=== PATIENT | male | born 1955 | race Caucasian/White ===

== ENCOUNTER 2017-02-10 20:12 | Emergency (ER) | payer OTHER ==
[~2017-02-10] VITALS: Ht 182.9 cm; Wt 76.2 kg
[2017-02-10 20:18] VITALS: BP 158/76; PULSE 102; RESP 20; TEMP 97.2
[2017-02-10 20:24] VITALS: O2SAT 97
[2017-02-10] MEDS ORDERED: SODIUM CHLOR 0.9% 1000 ML INJ 1,000 ML IV SCH (20:37)
--- NOTE | 2017-02-10 20:37 | PD ---
HPI Chief Complaint: GI Complaint Time Seen by Provider: 20:27 Travel History International Travel<30 days: No Contact w/Intl Traveler<30days: No Traveled to known affect area: No History of Present Illness HPI The patient is a 62-year-old male that complains of vomiting since about noon today. He had slight diarrhea at 10:30 this morning. The patient has a history of incapacitating vertigo and has been admitted to the hospital for this. He states he does have vertigo now, particularly when he stands. He denies any fever. He does feel dehydrated. He denies hematemesis or melanotic or bloody stools. PFSH Past Medical History Cardiovascular Problems: No Genitourinary: No Musculoskeletal: No Neurologic: No Respiratory: No Social History Alcohol Use: No Tobacco Use: No Substance Use: No Allergies-Medications (Allergen,Severity, Reaction): Coded Allergies: phenobarbital (Verified Allergy, Severe, 02/10/17) Reported Meds & Prescriptions Reported Meds & Active Scripts Active Reported Hydrochlorothiazide 12.5 Mg Cap 12.5 Mg PO DAILY Enalapril (Enalapril Maleate) 2.5 Mg Tab 2.5 Mg PO DAILY Review of Systems Except as stated in HPI: all other systems reviewed are Neg Physical Exam Narrative GENERAL: The patient is alert, oriented 3 in moderate apparent distress with his nausea. He holds his head completely still, apparently because of the vertigo. His vital signs show blood pressure 158/76 with heart rate of 102. He appears mildly dehydrated. SKIN: Focused skin assessment warm/dry. HEAD: Atraumatic. Normocephalic. EYES: Pupils equal and round. No scleral icterus. No injection or drainage. With head movement the patient does exhibit some brief lateral nystagmus. This makes him very uncomfortable. ENT: No nasal bleeding or discharge. Mucous membranes pink and moist. NECK: Trachea midline. No JVD. CARDIOVASCULAR: Regular rate and rhythm. No murmur appreciated. RESPIRATORY: No accessory muscle use. Clear to auscultation. Breath sounds equal bilaterally. GASTROINTESTINAL: Abdomen soft, non-tender, nondistended. Hepatic and splenic margins not palpable. No guarding or rebound is present. MUSCULOSKELETAL: No obvious deformities. No clubbing. No cyanosis. No edema. NEUROLOGICAL: Awake and alert. No obvious cranial nerve deficits. Motor grossly within normal limits. Normal speech. PSYCHIATRIC: Appropriate mood and affect; insight and judgment normal. Data Data Last Documented VS Vital Signs Date Time Temp Pulse Resp B/P (MAP) Pulse Ox O2 Delivery O2 Flow Rate FiO2 02/10/17 21:31 89 16 166/65 (98) 98 Nasal Cannula 2.00 02/10/17 20:18 97.2 Orders Orders Complete Blood Count With Diff (02/10/17 20:37) Comprehensive Metabolic Panel (02/10/17 20:37) Lipase (02/10/17 20:37) Urinalysis - C+S If Indicated (02/10/17 20:37) Iv Access Insert/Monitor (02/10/17 20:37) Ecg Monitoring (02/10/17 20:37) Oximetry (02/10/17 20:37) Sodium Chlor 0.9% 1000 Ml Inj (Ns 1000 M (02/10/17 20:37) Sodium Chloride 0.9% Flush (Ns Flush) (02/10/17 20:45) Prochlorperazine Inj (Compazine Inj) (02/10/17 20:45) Sodium Chlor 0.9% 1000 Ml Inj (Ns 1000 M (02/10/17 20:45) Labs Laboratory Tests Test 02/10/17 20:40 White Blood Count 13.5 TH/MM3 Red Blood Count 5.74 MIL/MM3 Hemoglobin 16.0 GM/DL Hematocrit 48.5 % Mean Corpuscular Volume 84.5 FL Mean Corpuscular Hemoglobin 28.0 PG Mean Corpuscular Hemoglobin Concent 33.1 % Red Cell Distribution Width 12.4 % Platelet Count 178 TH/MM3 Mean Platelet Volume 9.7 FL Neutrophils (%) (Auto) 83.5 % Lymphocytes (%) (Auto) 11.3 % Monocytes (%) (Auto) 2.4 % Eosinophils (%) (Auto) 0.2 % Basophils (%) (Auto) 2.6 % Neutrophils # (Auto) 11.3 TH/MM3 Lymphocytes # (Auto) 1.5 TH/MM3 Monocytes # (Auto) 0.3 TH/MM3 Eosinophils # (Auto) 0.0 TH/MM3 Basophils # (Auto) 0.4 TH/MM3 CBC Comment DIFF FINAL Differential Comment Blood Urea Nitrogen 14 MG/DL Creatinine 1.30 MG/DL Random Glucose 157 MG/DL Total Protein 7.9 GM/DL Albumin 3.8 GM/DL Calcium Level 9.0 MG/DL Alkaline Phosphatase 67 U/L Aspartate Amino Transf (AST/SGOT) 36 U/L Alanine Aminotransferase (ALT/SGPT) 56 U/L Total Bilirubin 0.9 MG/DL Sodium Level 133 MEQ/L Potassium Level 3.5 MEQ/L Chloride Level 98 MEQ/L Carbon Dioxide Level 22.8 MEQ/L Anion Gap 12 MEQ/L Estimat Glomerular Filtration Rate 56 ML/MIN Lipase 156 U/L [facility] Medical Decision Making Medical Screen Exam Complete: Yes Emergency Medical Condition: Yes Medical Record Reviewed: Yes Interpretation(s) The GFR is 56 and the glucose is 157 and the sodium is 133 but the rest of the complete metabolic profile is normal. Lipase is normal. The CBC shows a white count of 13,500 with 83.5% neutrophils but is otherwise unremarkable. Differential Diagnosis Vertigo, viral upper respiratory infection, viral labyrinthitis, viral gastroenteritis Narrative Course The patient appears to have vertigo. He may also have a viral gastroenteritis. He is given Compazine 10 mg every 4-6 hours as needed for nausea. He does have a history of recurrent vertigo and has been worked up for this. It is now 10:40 PM the patient feels much better and is not nauseated. His vertigo has subsided. Diagnosis Primary Impression: Vertigo Additional Instructions: Follow-up with her primary care physician next week. Do not drink alcohol or drive on the Compazine. Med/Other Pt SpecificInfo: Prescription(s) given Scripts Prochlorperazine Maleate (Prochlorperazine Maleate) 10 Mg Tab 10 MG PO Q4H Y for NAUSEA OR VOMITING, #30 TAB 0 Refills Prov: Dennis Evangelista MD 02/10/17 Disposition: DISCHARGE HOME Condition: Stable Dennis Evangelista MD Feb 10, 2017 20:37
[2017-02-10 20:40] VITALS: O2SAT 97
[2017-02-10] MEDS ORDERED: SODIUM CHLORIDE 0.9% FLUSH 10 ML FLUSH IV FLUSH PRN (20:45)
[2017-02-10] MEDS ORDERED: PROCHLORPERAZINE INJ 10 MG/2 ML VIAL IV PUSH ONE (20:45)
[2017-02-10] MEDS: SODIUM CHLOR 0.9% 1000 ML INJ 1,000 ML IV SCH ×2 (20:45→21:15)
[2017-02-10 20:48] LABS: AUTOMATED NEUTROPHIL # 11.3 TH/MM3 (1.8-7.7); BASOPHIL # 0.4 TH/MM3 (0-0.2); BASOPHIL % 2.6 % (0.0-2.0); EOSINOPHIL % 0.2 % (0.0-4.0); HEMATOCRIT 48.5 % (39.0-51.0); LYMPH % 11.3 % (9.0-44.0); LYMPHOCYTE # 1.5 TH/MM3 (1.0-4.8); MEAN CELL VOLUME 84.5 FL (80.0-100.0); MEAN CORPUSCULAR HGB CONC 33.1 % (32.0-36.0); MEAN PLATELET VOLUME 9.7 FL (7.0-11.0); MONO % 2.4 % (0.0-8.0); MONOCYTE # 0.3 TH/MM3 (0-0.9); NEUT % 83.5 % (16.0-70.0); PLATELET COUNT 178 TH/MM3 (150-450); RED BLOOD COUNT 5.74 MIL/MM3 (4.50-5.90); RED CELL DISTRIBUTION WIDTH 12.4 % (11.6-17.2); WHITE BLOOD COUNT 13.5 TH/MM3 (4.0-11.0)
[2017-02-10] MEDS ORDERED: HYDR12.57 PO (20:50)
[2017-02-10] MEDS ORDERED: ENAL2.5T PO (20:50)
[2017-02-10 20:52] LABS: CHLORIDE 98 MEQ/L (98-107); SODIUM (NA) 133 MEQ/L (136-145)
[2017-02-10 20:56] LABS: ALBUMIN 3.8 GM/DL (3.4-5.0); BICARBONATE 22.8 MEQ/L (21.0-32.0); BLOOD UREA NITROGEN 14 MG/DL (7-18); GLUCOSE,RANDOM 157 MG/DL (74-106); LIPASE 156 U/L (73-393)
[2017-02-10 20:58] VITALS: BP 147/65; PULSE 89; RESP 16; O2SAT 99
[2017-02-10 20:58] LABS: ALT (GPT) 56 U/L (12-78); AST (GOT) 36 U/L (15-37); GLOMERULAR FILTRATION RATE 56 ML/MIN (>89)
[2017-02-10 21:00] LABS: TOTAL BILIRUBIN ADULT 0.9 MG/DL (0.2-1.0); TOTAL PROTEIN 7.9 GM/DL (6.4-8.2)
[2017-02-10 21:01] LABS: ALKALINE PHOSPHATASE 67 U/L (45-117)
[2017-02-10 21:31] VITALS: BP 166/65; PULSE 89; RESP 16; O2SAT 98
[2017-02-10 22:39] LABS: BILIRUBIN, URINE NEG (NEG); BLOOD, URINE NEG (NEG); GLUCOSE,URINE NEG (NEG); KETONE, URINE 15 mg/dL (NEG); NITRITE,URINE NEG (NEG); PH, URINE 6.5 (5.0-8.5); URINE LEUKOCYTE ESTERASE NEG (NEG)
[2017-02-10] MEDS ORDERED: PROC10TA PO (22:40)
[2017-02-10 22:47] LABS: RBC, URINE 0-2 /hpf (0-3); SQUAMOUS EPITHELIAL CELL URINE 0-5 /hpf (0-5); URINE COLOR YELLOW (YELLW/STRAW); WBC, URINE 0-2 /hpf (0-5)
[2017-02-10 23:04] VITALS: BP 182/68
== END 2017-02-10 23:12 | disposition home or self-care (01) ==
LOC: PHED 20:12
DX: R42 Dizziness and giddiness (principal)
CPT/HCPCS: 80053; 81001; 83690; 85025; 96361; 96374; 99284; J0780; J7030